=== PATIENT | male | born 1995 | race African-American/Black ===

== ENCOUNTER 2019-04-15 13:23 | Emergency (ER) | payer SELFPAY ==
[2019-04-15 13:34] VITALS: BP 135/86
--- NOTE | 2019-04-15 13:36 | ER Document Report ---
HPI - HPI Time Seen by Provider: 04/15/19 13:28 Notes: Patient is a 24-year-old male who presents complaining of right lower jaw pain that started this morning. Patient states that he is noticed a little bit of swelling in that area. Denies injury. He is able to eat and drink without difficulty, but does have decreased p.o. intake because of the pain. He is otherwise urinating normally and having normal bowel movement. Denies drug allergies. No smoking history. He has not noticed any pimples or other break in the skin to the area. Denies any headache, fever, neck pain, URI, sore throat, chest pain, palpitations, syncope, cough, shortness of breath, wheeze, dyspnea, abdominal pain, nausea/vomiting/diarrhea, urinary retention, dysuria, hematuria, or rash. - ROS Systems Reviewed and Negative: Yes All other systems reviewed and negative Past Medical History - Social History Smoking Status: Never Smoker Family History: Reviewed & Not Pertinent Vertical Provider Document - CONSTITUTIONAL Agree With Documented VS: Yes Notes: PHYSICAL EXAMINATION: GENERAL: Well-appearing, well-nourished and in no acute distress. HEAD: Atraumatic, normocephalic. EYES: Pupils equal round and reactive to light, extraocular movements intact, sclera anicteric, conjunctiva are normal. ENT: EAC clear b/l. TM's intact b/l without erythema, fluid, or perforation. Nares patent and without discharge. oropharynx clear without exudates. No tonsilar hypertrophy or erythema. Moist mucous membranes. No sinus tenderness. Uvula midline. No palatine shift. No tongue protrusion. No respiratory compromise. Mouth: Poor dentition. No obvious abscess or discharge noted. No obvious facial swelling. Pt is tender to the submandibular area rt side. No erythema, induration, fluctuance, or streaks. NECK: Normal range of motion, supple with possible small submandibular lymphadenopathy that correlates with pain described. No rigidity/meningismus. LUNGS: Breath sounds clear to auscultation bilaterally and equal. No wheezes rales or rhonchi. HEART: Regular rate and rhythm without murmurs, rubs, gallops. NEUROLOGICAL: Cranial nerves grossly intact. Normal speech, normal gait. PSYCH: Normal mood, normal affect. SKIN: Warm, Dry, normal turgor, no rashes or lesions noted. Course - Re-evaluation Re-evalutation: 04/15/19 13:34 Patient is an afebrile, well-hydrated, 24-year-old male who presents to the ED with jaw pain, suspect dental nerve root etiology versus infection vs possible small submandibular lymphadenitis. Vitals are acceptable. PE is otherwise unremarkable. No I&D, labs, or imaging warranted at this time based on H&P. I will send him home with a prescription for penicillin. Low suspicion for any meningitis, sepsis, peritonsillar/pharyngeal abscess, respiratory compromise, Paul's, temporal arteritis, or other emergent systemic condition at this time. Patient is aware this condition can change from initial presentation and he needs to monitor symptoms closely. Conservative measures otherwise for symptoms. Call to schedule an appointment with a dentist for further evaluation and management. Recheck with your PCM this week as well. Return to the ED with any worsening/concerning symptoms otherwise as reviewed in discharge. Patient is in agreement. Discharge - Discharge Clinical Impression: Jaw pain Condition: Stable Disposition: HOME, SELF-CARE Additional Instructions: [place] and floss twice daily Maintain fluid intake Take antibiotics as directed Mouthwash, salt water gargles, peroxide rinse as needed Tylenol/ibuprofen as needed Recheck with PCM this week Call today/tomorrow and schedule an appointment with your dentist for further evaluation Return to the ED with any worsening symptoms and/or development of fever, headache, facial swelling, swelling of lips/tongue/throat, trouble swallowing, drooling, hoarseness, neck pain/stiffness, chest pain, palpitations, syncope, shortness of breath, trouble breathing, abdominal pain, n/v/d, numbness/tingling, or other worsening symptoms that are concerning to you. Prescriptions: Ibuprofen [Motrin 800 mg Tablet] 800 mg PO Q8H PRN #15 tab PRN Reason: Penicillin V Potassium [Penicillin Vk 250 mg Tablet] 500 mg PO BID #40 tablet Forms: Elevated Blood Pressure, Return to Work Referrals: [facility] [Provider Group] - Follow up as needed [facility] [Provider Group] - Follow up as needed
== END 2019-04-15 13:42 | disposition home or self-care (01) ==
LOC: ER 13:23
DX: R68.84 Jaw pain (principal)
CPT/HCPCS: 99282

== ENCOUNTER → 2019-04-17 | Emergency (ER) | payer SELFPAY ==
[~2019-04-17] MED LIST: CLINDAMYCIN 600 MG/D5W RTU 1,200 MG/100 ML RTUPB IV ONE; CLINDAMYCIN PHOSPHATE INJ 300 MG/2 ML SDV IV ONE; DIPHENHYDRAMINE HCL 50 MG/ML VIAL IV ONE; DIPHENHYDRAMINE HCL 50 MG/ML VIAL ONE; FAMOTIDINE INJ/PF 20 MG/2 ML SDV IV ONE; FENTANYL CITRATE INJ/PF 100 MCG/2 ML AMPUL IV ONE; METHYLPREDNISOLONE INJ 125 MG/2 ML SDV IV ONE; NORMAL SALINE 1000 ML 1,000 ML IV ONE; ONDANSETRON HCL INJ/PF 4 MG/2 ML SDV IV ONE
--- NOTE | 2019-04-17 16:23 | ER Document Report ---
ED Medical Screen (RME) - General Chief Complaint: Breathing Difficulty Stated Complaint: DIFFICULTLY BREATHING/SWALLOWING Time Seen by Provider: 04/17/19 16:16 Mode of Arrival: Ambulatory Information source: Patient Notes: 24-year-old male presented to ED for complaint of pain and swelling to the right jaw. He states he woke up from nap today and he was having trouble breathing. He was seen on the third for the similar pain and was started on antibiotics and referred to the [facility] for dental problems. He states it is worse today that the antibiotics are not helping his pain and swelling. He states he is having trouble eating or drinking due to the swelling. I have greeted and performed a rapid initial assessment of this patient. A comprehensive ED assessment and evaluation of the patient, analysis of test results and completion of medical decision making process will be conducted by an additional ED providers. TRAVEL OUTSIDE OF THE [place] IN LAST 30 DAYS: No Physical Exam - Vital signs Vitals: Temp Pulse Resp BP Pulse Ox 99.5 F 120 H 18 148/95 H 100 04/17/19 16:07 04/17/19 16:07 04/17/19 16:07 04/17/19 16:07 04/17/19 16:07 Course - Vital Signs Vital signs: Temp Pulse Resp BP Pulse Ox 99.5 F 120 H 18 148/95 H 100 04/17/19 16:07 04/17/19 16:07 04/17/19 16:07 04/17/19 16:07 04/17/19 16:07
[2019-04-17 16:55] LABS: HEMATOCRIT 45.1 % (37.9-51.0); HEMOGLOBIN 14.8 g/dL (13.5-17.0); MEAN CORPUSCULAR HGB CONC 32.9 g/dL (32.0-36.0); MEAN CORPUSCULAR VOLUME 79 fl (80-97); PLATELET COUNT 234 10^3/uL (150-450); RED BLOOD COUNT 5.71 10^6/uL (4.35-5.55); RED CELL DISTRIBUTION WIDTH 17.2 % (11.5-14.0); WHITE BLOOD COUNT 22.6 10^3/uL (4.0-10.5)
[2019-04-17 17:12] LABS: ABSOLUTE LYMPHOCYTES# (MANUAL) 1.8 10^3/uL (0.5-4.7); ABSOLUTE MONOCYTES # (MANUAL) 2.5 10^3/uL (0.1-1.4); BASOPHILS % (MANUAL) 0 % (0-2); EOSINOPHILS % (MANUAL) 0 % (0-6); LYMPHOCYTES % (MANUAL) 8 % (13-45); MONOCYTES % (MANUAL) 11 % (3-13); SEGMENTED NEUTROPHILS % (MAN) 81 % (42-78); TOTAL CELLS COUNTED 100
[2019-04-17 17:13] LABS: ANISOCYTOSIS 1+; PLATELET COMMENT ADEQUATE
--- NOTE | 2019-04-17 17:45 | ER Document Report ---
ED Oral Problem - General Chief Complaint: Jaw Pain Stated Complaint: DIFFICULTLY BREATHING/SWALLOWING Time Seen by Provider: 04/17/19 16:16 Mode of Arrival: Ambulatory Notes: Patient is here complaining of severe pain under the jaw, primarily to the right of the midline and midline areas. Patient was seen here couple of days ago for a possible dental infection and put on penicillin. He has not gotten better and now presents with significant,very hard swelling of the submandibular region. Patient is unable to speak because he is unable to open his mouth. He is having difficulty swallowing because of the pain, as well. He is spitting saliva into a container. No other history available at this time. TRAVEL OUTSIDE OF THE [place] IN LAST 30 DAYS: No Past Medical History - General Information source: Patient - Social History Smoking Status: Unknown if Ever Smoked Family History: Reviewed & Not Pertinent Patient has suicidal ideation: No Patient has homicidal ideation: No Pulmonary Medical History: Reports: Hx Asthma Review of Systems - Review of Systems -: Yes ROS unobtainable due to patient's medical condition - Patient is unable to converse. Physical Exam - Vital signs Vitals: Temp Pulse Resp BP Pulse Ox 99.5 F 120 H 18 148/95 H 100 04/17/19 16:07 04/17/19 16:07 04/17/19 16:07 04/17/19 16:07 04/17/19 16:07 Interpretation: Tachycardic Notes: PHYSICAL EXAMINATION: GENERAL: Well-appearing, but appears to be in pain. Unable to speak. Holding neck region which is swollen. HEAD: Atraumatic, normocephalic. EYES: Pupils equal round and reactive to light, extraocular movements intact. ENT: Poorly visualized but oropharynx clear without exudates. Moist mucous membranes. Unable to visualize teeth. NECK: Significant hard, firm, swelling in the submandibular region, slightly more so on the right than the left. Very tender to touch. LUNGS: Breath sounds clear and equal bilaterally. HEART: Regular rate and rhythm without murmurs. ABDOMEN: Soft, nontender. No guarding or rebound. No masses. BACK: No tenderness throughout entire back. EXTREMITIES: Normal range of motion without pain. NEUROLOGICAL: Normal speech, normal gait. Normal sensory, motor, and reflex exams. Awake, alert, and oriented x3. Cranial nerves normal. SKIN: Warm, dry, no rashes. Course - Re-evaluation Re-evalutation: 04/17/19 19:05 Approximately 1800, I called [facility] and was told that they are not taking any medical cases. I then called [facility] and presented my case and ask if they may be able to accept the patient in transfer. They are to get back to me. I called [facility] to ask the same and I was put in touch with a Dr. Bonilla, multi operation machine operator for ENT there, and he was agreeable to accepting the patient in transfer, ED to ED. 04/17/19 20:04 We are awaiting transport for this patient to go to [facility]. There was one helicopter on the way here, but it got diverted to a more serious patient. Alternate helicopter is supposed to be here in 30 minutes. Patient is has just complained of some pain so he is getting more fentanyl. Otherwise, he looks to be stable. His airway is still open and safe and he seems to be more comfortable and able to speak better. I spoke with Dr. Ortega, ER doc at [facility], who is aware of everything going on with this patient and said they will be on the look out for him. - Vital Signs Vital signs: Temp Pulse Resp BP Pulse Ox 100.7 F H 120 H 20 134/84 H 100 04/17/19 20:52 04/17/19 16:07 04/17/19 20:52 04/17/19 20:52 04/17/19 20:52 - Laboratory Result Diagrams: 04/17/19 16:30 04/17/19 16:30 Laboratory results interpreted by me: 04/17/19 04/17/19 04/17/19 16:30 16:30 16:30 WBC 22.6 H RBC 5.71 H MCV 79 L MCH 26.0 L RDW 17.2 H Seg Neuts % (Manual) 81 H Lymphocytes % (Manual) 8 L Abs Neuts (Manual) 18.3 H Abs Monocytes (Manual) 2.5 H Potassium 3.4 L Creatine Kinase 213 H Urine Protein Urine Ketones Urine Blood Urine Urobilinogen 04/17/19 19:17 WBC RBC MCV MCH RDW Seg Neuts % (Manual) Lymphocytes % (Manual) Abs Neuts (Manual) Abs Monocytes (Manual) Potassium Creatine Kinase Urine Protein 30 H Urine Ketones 80 H Urine Blood LARGE H Urine Urobilinogen 4.0 H - Diagnostic Test Radiology reviewed: Image reviewed, Reports reviewed - CT Critical Care Note - Critical Care Note Total time excluding time spent on procedures (mins): 60 Discharge - Discharge Clinical Impression: Submandibular abscess Condition: Serious Disposition: [facility]
--- NOTE | 2019-04-17 17:56 | RADIOLOGY REPORT (SQ) ---
EXAM DESCRIPTION: CT SOFT TISSUE NECK WITH COMPLETED DATE/TIME: 04/17/2019 5:14 pm REASON FOR STUDY: Submandibular swelling COMPARISON: None. TECHNIQUE: Post IV contrasted scanning from skull base through lung apices with review of bone, soft tissue and lung windows. Reconstructed coronal and sagittal MPR images reviewed. All images stored on PACS. All CT scanners at this facility use dose modulation, iterative reconstruction, and/or weight based d osing when appropriate to reduce radiation dose to as low as reasonably achievable (ALARA). [facility]: Dose Right [facility]: CareDose [facility]: Dose Right [facility]: Teradose 4D [facility]: Ziippi CONTRAST TYPE AND DOSE: contrast/concentration: Isovue 350.00 mg/ml; Total Contrast Delivered: 75.0 ml; Total Saline Delivered: 55.0 ml RENAL FUNCTION: None required. The patient is less than 50 years old. RADIATION DOSE: CT Rad equipment meets quality standard of care and radiation dose reduction techniq ues were employed. CTDIvol: 8.5 mGy. DLP: 270 mGy-cm. . LIMITATIONS: None. FINDINGS: SKULL BASE: Intact. MAJOR SALIVARY GLANDS: Heterogeneous appearance of the submandibular gland with adjacent soft tissue stranding. The bilateral parotid glands are unremarkable. LYMPHADENOPATHY: Mildly enlarged submandibular lymph nodes measuring less than 1 cm in short axis. M ildly enlarged lymph nodes along the left jugular chain level to 2 A measuring up to 10 mm. MUCOSAL MASSES OR ASYMMETRY: Large loculated fluid collection extending from the submandibular region along the inner aspect of the mandible, left more than right, approximate measurements are 4.1 x 2.6 cm, worrisome for abscess formation. There is prevertebral soft tissue edema. There is diffuse sof t tissue edema at the extending from the submandibular region along the anterior aspect of the neck. LARYNX/CORDS: No abnormal findings. VASCULAR STRUCTURES: The major vessels are patent. LUNG APICES: Pleura scarring at the bilateral lung apices. BONES: Intact. THYROID: No obvious masses. PARANASAL SINUSES: Clear. OTHER: There are bilateral dental caries. IMPRESSION: 1. Large loculated fluid collection extending from the submandibular region along the in ner aspect of the mandible, left more than right, worrisome for abscess formation. Diffuse soft tiss ue edema extending from the submandibular region along the anterior aspect of the neck, please correl ate with clinical exam to evaluate for cellulitis. Prevertebral soft tissue edema. ENT consult christel mmended. 2. Heterogeneous appearance of the bilateral submandibular glands, suggestive of acute sialadenitis. 3. Mild cervical adenopathy, may be reactive. 4. Bilateral dental caries. Please correlate with dental exam. COMMENT: The above findings were discussed over the phone with Dr. Nguyen at 17:36 hours on 04/17/20 19. TECHNICAL DOCUMENTATION: JOB ID: [id number] Quality ID # [id number]: Final reports with documentation of one or more dose reduction techniques (e.g., Au tomated exposure control, adjustment of the mA and/or kV according to patient size, use of iterative reconstruction technique) 2010 [employer]- All Rights Reserved Reading location - IP/workstation name: [email or web address]
[2019-04-17 19:01] LABS: ALBUMIN 3.8 g/dL (3.5-5.0); ALKALINE PHOSPHATASE 86 U/L (38-126); ANION GAP 13 (5-19); ASPARTATE AMINO TRANSFERASE 27 U/L (17-59); BILIRUBIN,DIRECT 0.1 mg/dL (0.0-0.4); BILIRUBIN,TOTAL 1.2 mg/dL (0.2-1.3); BLOOD UREA NITROGEN 10 mg/dL (7-20); CALCIUM 8.9 mg/dL (8.4-10.2); CARBON DIOXIDE 25 mmol/L (22-30); CHLORIDE 99 mmol/L (98-107); GLUCOSE 106 mg/dL (75-110); POTASSIUM 3.4 mmol/L (3.6-5.0); TOTAL PROTEIN 7.2 g/dL (6.3-8.2)
[2019-04-17 19:38] LABS: APPEARANCE,URINE CLEAR; BILIRUBIN,URINE NEGATIVE (NEGATIVE); COLOR,URINE YELLOW; GLUCOSE, URINE NEGATIVE (NEGATIVE); KETONES,URINE 80 mg/dL (NEGATIVE); LEUKOCYTE ESTERASE,URINE NEGATIVE (NEGATIVE); NITRITE,URINE NEGATIVE (NEGATIVE); PROTEIN,URINE 30 mg/dL (NEGATIVE)
[2019-04-17 19:39] LABS: URINE SPECIFIC GRAVITY > 1.060
[2019-04-17 21:11] VITALS: BP 134/84
== END | disposition short-term general hospital (02) ==
LOC: ER 15:50
DX: K12.2 Cellulitis and abscess of mouth (principal); R13.10 Dysphagia, unspecified; J45.909 Unspecified asthma, uncomplicated
CPT/HCPCS: 36415; 87040; 82550; 85025; 80053; 81001; 70491; J3490; J1200; J3010; J2930; J2405; J7030; S0028